=== PATIENT | female | born 1970 | race African-American/Black ===

== ENCOUNTER 2017-01-03 18:20 | Observation (INO) | payer BC, OTHER ==
--- NOTE | 2017-01-03 19:52 | PDOC ---
History of Present Illness - General Chief Complaint: Chest Pain Stated Complaint: CHEST PAIN Time Seen by Provider: 01/03/17 19:14 History Source: Patient Exam Limitations: No Limitations - History of Present Illness Initial Comments: 01/03/17 19:29 46yo Female patient w/ PmHx: Fibromyalgia, DDD (neck) presents to ED c/o Chest Pain since Friday. Patient states she went to bed on Friday night completely fine, and woke up with this pain. She reports taking Cyclobenzeprine with no relief. Patient describes pain as "Heavy pulsating feeling that is dull and travels through to her back." LNMP: 5 years ago. Denies n/v/d, dizziness, fever, or any other complaints at this time. Presenting Symptoms: Chest Pain, Short of Breath Timing/Duration: reports: constant Severity/Quality: reports: moderate, dull Location: reports: substernal Chest Pain Radiation: reports: back Activities at Onset: reports: no specific activity Prior Chest Pain/Cardiac Workup: reports: No prior chest pain, No prior cardiac workup Past History - Travel Traveled outside of the country in the last 30 days: No Close contact w/someone who was outside of country & ill: No - Past Medical History Allergies/Adverse Reactions: Allergies Allergy/AdvReac Type Severity Reaction Status Date / Time Iodinated Contrast Media - Allergy Verified 01/03/17 18:34 Oral and [IV Dye, Iodine Containing Contrast ] Home Medications: Ambulatory Orders Tramadol HCl 50 mg PO DAILY PRN 01/03/17 Anemia: No Asthma: No Cancer: No Cardiac Disorders: No CVA: No COPD: No Dementia: No Diabetes: No Dialysis: No GI Disorders: No Disorders: No HTN: No Hypercholesterolemia: No HIV: No Kidney Stones: No Liver Disease: No Seizures: No Thyroid Disease: No Other medical history: FIBROMYALGIA, SPINAL STENOSIS - Surgical History Abdominal Surgery: No Appendectomy: No Cardiac Surgery: No Cholecystectomy: No Lung Surgery: No Neurologic Surgery: No - Reproductive History Cervical CA: No Dysfunctional Uterine Bleeding: No Ectopic : No Endometrial CA: No Polycystic Ovaries: No Tubal Ligation: Yes - Psycho/Social/Smoking Cessation Hx Anxiety: No Suicidal Ideation: No Smoking Status: No Smoking History: Never smoked Number of Cigarettes Smoked Daily: 0 Hx Alcohol Use: No Drug/Substance Use Hx: No Substance Use Type: None Cardiac Specific PMH - Complaint Specific PMHX Abdominal Aortic Aneurysm: No Angina: No Cardiac Arrhythmia: No Cardiac Stent: No GERD: No Myocardial Infarction: No Pacemaker: No Pulmonary Embolus: No Valvular Heart Disease: No Peripheral Vascular Disease: No Review of Systems - Review of Systems Able to Perform ROS?: Yes Is the patient limited [place]otho proficient: No Constitutional: No: Chills, Fever Respiratory: Yes: Shortness of Breath. No: Cough, Orthopnea, Stridor, Wheezing , Productive cough, Hemoptysis Cardiac (ROS): Yes: Chest Pain. No: Edema, Lightheadedness, Palpitations, Syncope, Chest Tightness ABD/GI: No: Diarrhea, Nausea, Poor Appetite, Poor Fluid Intake, Rectal Bleeding , Vomiting : No: Dysuria, Hematuria Musculoskeletal: Yes: Back Pain, Muscle Pain. No: Joint Pain, Muscle Weakness, Neck Pain Integumentary: No: Erythema, Rash Neurological: No: Headache, Numbness, Paresthesia, Tremors, Weakness, Dizziness All Other Systems: Reviewed and Negative *Physical Exam - Vital Signs Last Vital Signs Temp Pulse Resp BP Pulse Ox 98.7 F 104 H 19 151/85 97 01/03/17 18:34 01/03/17 18:34 01/03/17 18:34 01/03/17 18:34 01/03/17 18:34 - Physical Exam General Appearance: Yes: Nourished, Appropriately Dressed, Mild Distress. No: Apparent Distress, Disheveled, Moderate Distress, Severe Distress Neck: positive: Trachea midline, Normal Thyroid, Supple. negative: Lymphadenopathy (R), Lymphadenopathy (L) Respiratory/Chest: positive: Chest Tender (Reproducible on palpation.), Lungs Clear, Normal Breath Sounds. negative: Respiratory Distress, Accessory Muscle Use, Labored Respiration, Rapid RR Cardiovascular: positive: Regular Rhythm, Tachycardia. negative: JVD, Murmur Gastrointestinal/Abdominal: positive: Normal Bowel Sounds, Soft. negative: Distended, Guarding, Rebound, Tenderness Musculoskeletal: positive: Normal Inspection. negative: CVA Tenderness Extremity: positive: Normal Capillary Refill, Normal Inspection, Normal Range of Motion. negative: Pedal Edema, Swelling Integumentary: positive: Normal Color, Dry, Warm Neurologic: positive: electrician helper II-XII NML intact, Fully Oriented, Alert, Normal Mood/ Affect, Normal Response, Motor Strength 5/5 Heart Score/ECG Review - History History: Slightly suspicious - Electrocardiogram EKG: Normal - Age Age: 45-65 - Risk Factors Risk Factors Heart Score: No Hx Hypercholesterolemia, No Hx Hypertension, No Hx Diabetes, No Smoking History, No Positive family hx of cardiac disease, No Hx Obesity Based on the list above the patient has:: 1-2 risk factors - Troponin Troponin: </= normal limit - Score Heart Score - Total: 2 - ECG Impressions Normal ECG: Yes Non-specific ST Elevation: No Ischemic Changes: No Bradycardia: No Torsades bryant Pointes: No WPW: No ED Treatment Course - LABORATORY CBC & Chemistry Diagram: 01/03/17 18:55 01/03/17 18:55 - ADDITIONAL ORDERS Additional order review: Laboratory Results 01/03/17 01/03/17 01/03/17 20:00 20:00 19:25 D-Dimer < 200 Sodium Potassium Chloride Carbon Dioxide Anion Gap BUN Creatinine Creat Clearance w eGFR Random Glucose Calcium Total Bilirubin AST ALT Alkaline Phosphatase Creatine Kinase 133 Troponin I C-Reactive Protein 1.6 H Total Protein Albumin Urine Color Ltyellow Urine Appearance Clear Urine pH 7.0 D Ur Specific [place] 1.019 Urine Protein Negative Urine Glucose (UA) Negative Urine Ketones Negative Urine Blood Negative Urine Nitrite Negative Urine Bilirubin Negative Urine Urobilinogen Negative Ur Leukocyte Esterase Negative Urine HCG, Qual Negative 01/03/17 18:55 D-Dimer Sodium 141 Potassium 4.3 Chloride 104 Carbon Dioxide 27 Anion Gap 10 BUN 14 Creatinine 0.9 Creat Clearance w eGFR > 60 Random Glucose 127 H Calcium 9.3 Total Bilirubin 1.1 H AST 16 ALT 33 Alkaline Phosphatase 79 Creatine Kinase 136 Troponin I < 0.02 C-Reactive Protein Total Protein 7.4 Albumin 3.6 Urine Color Urine Appearance Urine pH Ur Specific [place] Urine Protein Urine Glucose (UA) Urine Ketones Urine Blood Urine Nitrite Urine Bilirubin Urine Urobilinogen Ur Leukocyte Esterase Urine HCG, Qual 01/03/17 18:55 RBC 4.55 MCV 83.0 MCHC 34.5 RDW 16.1 H MPV 9.5 Neutrophils % 45.1 D Lymphocytes % 44.6 H D Monocytes % 8.3 Eosinophils % 1.5 Basophils % 0.5 - RADIOLOGY Radiology Studies Ordered: Category Date Time Status CHEST CTA [CT] Stat CT Scan 01/03/17 22:25 Completed CHEST PA & LAT [RAD] Stat Radiology 01/03/17 19:26 Completed - Medications Given in the ED: ED Medications Discontinued Medications Generic Name Dose Route Start Last Admin Trade Name Willard PRN Reason Stop Dose Admin Aspirin 324 mg 01/04/17 00:24 01/04/17 00:57 Asa - PO 01/04/17 00:25 324 mg ONCE ONE Administration Diphenhydramine HCl 50 mg 01/03/17 21:34 01/03/17 21:47 Benadryl Injection - IM 01/03/17 21:35 50 mg ONCE ONE Administration Sodium Chloride 1,000 mls @ 1,000 mls/hr 01/03/17 20:35 01/03/17 20:51 Normal Saline - IV 01/03/17 21:34 1,000 mls/hr ASDIR STA Administration Ketorolac Tromethamine 30 mg 01/03/17 20:35 01/03/17 20:51 Toradol Injection - IVPUSH 01/03/17 20:36 30 mg ONCE ONE Administration Methylprednisolone Sodium Succinate 125 mg 01/03/17 21:34 01/03/17 21:39 Solu-Medrol - IVPB 01/03/17 21:35 125 mg ONCE ONE Administration Medical Decision Making - Medical Decision Making 01/03/17 21:31 Spoke with patient regarding CTA and allergies to contrast. Patient states she had a delayed reaction years ago where she broke out in hives. Patient had another CT-Scan with contrast more recently and was pre-medicated with Benadryl. No complication or allergic reaction reported. Patient agreed to CTA r /o embolism. *DC/Admit/Observation/Transfer Diagnosis at time of Disposition: Chest pain of unknown etiology - Discharge Dispostion Condition at time of disposition: Fair Admit: Yes - Referrals Referrals: Ca Reynolds [Primary Care Provider] -
[2017-01-03 19:55] LABS: BASOPHIL 0.5 % (0-2.0); EOSINOPHIL 1.5 % (0-4.5); MCH 28.6 pg (25.7-33.7); MCHC 34.5 g/dl (32.0-36.0); MEAN PLT VOLUME 9.5 fl (7.5-11.1); NEUTROPHILS 45.1 % (42.8-82.8); PLATELET COUNT 255 K/MM3 (134-434); RDW 16.1 % (11.6-15.6); WHITE BLOOD COUNT 11.5 K/mm3 (4.0-10.0)
[2017-01-03 20:01] LABS: URINE APPEARANCE CLEAR; URINE BILIRUBIN NEGATIVE (NEGATIVE); URINE BLOOD NEGATIVE (NEGATIVE); URINE COLOR LTYELLOW; URINE GLUCOSE (UA) NEGATIVE (NEGATIVE); URINE KETONE NEGATIVE (NEGATIVE); URINE LEUK ESTERASE NEGATIVE (NEGATIVE); URINE NITRITE NEGATIVE (NEGATIVE); URINE PROTEIN NEGATIVE (NEGATIVE); URINE UROBILINOGEN NEGATIVE E.U./dl (0.2-1.0)
[2017-01-03 20:35] LABS: ALBUMIN 3.6 g/dl (3.4-5.0); ANION GAP 10 (8-16); BILIRUBIN,TOTAL 1.1 mg/dL (0.2-1.0); CALCIUM 9.3 mg/dL (8.5-10.1); CO2 27 mmol/L (21-32); CREATININE 0.9 mg/dL (0.55-1.02); GLUCOSE,RANDOM 127 mg/dL (74-106); SGOT/AST 16 U/L (15-37); SGPT/ALT 33 U/L (12-78); TOT PROT 7.4 g/dl (6.4-8.2)
[2017-01-03] MEDS ORDERED: SODIUM CHLORIDE 1,000 ML IV STA (20:35)
[2017-01-03] MEDS ORDERED: KETOROLAC TROMETHAMINE 30 MG/1 ML VIAL IVPUSH ONE (20:35)
[2017-01-03 20:37] LABS: ALK PHOS 79 U/L (45-117); TROPONIN I < 0.02 ng/ml (0.00-0.05)
[2017-01-03] MEDS ORDERED: KETOROLAC TROMETHAMINE 30 MG/1 ML VIAL ONE (20:42)
[2017-01-03 21:27] LABS: C-REACTIVE PROTEIN 1.6 MG/DL (0.00-0.3)
[2017-01-03] MEDS ORDERED: methylPREDNISolone NA SUCC 125 MG/2 ML VIAL ONE (21:33)
[2017-01-03] MEDS ORDERED: methylPREDNISolone NA SUCC 125 MG/2 ML VIAL IVPB ONE (21:34)
[2017-01-04] MEDS ORDERED: ASPIRIN 81 MG CHEWABLE TABLETS PO ONE (00:24)
[2017-01-04] MEDS ORDERED: ASPIRIN COATED 81 MG TABLET.EC ONE (00:35)
--- NOTE | 2017-01-04 01:08 | HP ---
CHIEF COMPLAINT: Chest Pain, SOB PCP: HISTORY OF PRESENT ILLNESS: This is a 46 y/o woman with a past medical history of Fibromyalgia, DJD, Thyroid Nodules. Who presents to the ED with midsternal intermittent chest pressure and SOB x 2 days. patient reports awakening in the morning to . She reports the pressure is worse on deep inspiration. Patient reports at times the pressure became worse with movement. Patient reports recent travel to [place] mid November by car 14hrs. Patient denies calf pain. Patient denies fever, chills, dizziness, AP, N/V/D, constipation, dysuria. ER course was notable for: (1) Cardiac Enzymes neg x1 (2) EKG- ST, anteroseptal infarct age undetermined (3) D- Dimer < 200 (4) CTA- neg PE Recent Travel: Yes PAST MEDICAL HISTORY: See HPI PAST SURGICAL HISTORY: Salpinoophrectomy Hysterectomy Thyroid Biopsy- 2016- negative Social History: Smoking: Never Alcohol: None Drugs: None Lives with Spouse, not employed Family History: Sisters: Thyroid Cancer, Diabetes, Crohn's Disease Mother: Diabetes Allergies Iodinated Contrast Media - Oral and [IV Dye, Iodine Containing Contrast ] Allergy (Verified 01/03/17 18:34) HOME MEDICATIONS: Home Medications Medication Instructions Recorded Tramadol HCl 50 mg PO DAILY PRN 01/03/17 REVIEW OF SYSTEMS CONSTITUTIONAL: fatigue Absent: fever, chills, diaphoresis, generalized weakness, malaise, loss of appetite, weight change HEENT: Absent: rhinorrhea, nasal congestion, throat pain, throat swelling, difficulty swallowing, mouth swelling, ear pain, eye pain, visual changes CARDIOVASCULAR: chest pain Absent: syncope, palpitations, irregular heart rate, lightheadedness, peripheral edema RESPIRATORY: cough, shortness of breath Absent: dyspnea with exertion, orthopnea, wheezing, stridor, hemoptysis GASTROINTESTINAL: Absent: abdominal pain, abdominal distension, nausea, vomiting, diarrhea, constipation, melena, hematochezia GENITOURINARY: Absent: dysuria, frequency, urgency, hesitancy, hematuria, flank pain, genital pain MUSCULOSKELETAL: myalgia, arthralgia Absent: joint swelling, back pain, neck pain SKIN: Absent: rash, itching, pallor HEMATOLOGIC/IMMUNOLOGIC: Absent: easy bleeding, easy bruising, lymphadenopathy, frequent infections ENDOCRINE: Absent: unexplained weight gain, unexplained weight loss, heat intolerance, cold intolerance NEUROLOGIC: Absent: headache, focal weakness or paresthesias, dizziness, unsteady gait, seizure, mental status changes, bladder or bowel incontinence PSYCHIATRIC: Absent: anxiety, depression, suicidal or homicidal ideation, hallucinations. PHYSICAL EXAMINATION Vital Signs - 24 hr 01/03/17 18:34 Temperature 98.7 F Pulse Rate 104 H Respiratory 19 Rate Blood Pressure 151/85 O2 Sat by Pulse 97 Oximetry (%) GENERAL: Awake, alert, and fully oriented, in no acute distress. HEAD: Normal with no signs of trauma. EYES: Pupils equal, round and reactive to light, extraocular movements intact, sclera anicteric, conjunctiva clear. No lid lag. EARS, NOSE, THROAT: Ears normal, nares patent, oropharynx clear without exudates. Moist mucous membranes. NECK: Normal range of motion, supple without lymphadenopathy, JVD, or masses. LUNGS: Breath sounds equal, clear to auscultation bilaterally. No wheezes, and no crackles. No accessory muscle use. HEART: Regular rate and rhythm, normal S1 and S2 without murmur, rub or gallop. CP reproducible to L- chest wall upon palpation ABDOMEN: Soft, nontender, not distended, normoactive bowel sounds, no guarding, no rebound, no masses. No hepatomegaly or splenomegaly. MUSCULOSKELETAL: Normal range of motion at all joints. No bony deformities or tenderness. No CVA tenderness. UPPER EXTREMITIES: 2+ pulses, warm, well-perfused. No cyanosis. No clubbing. Trace B/L hands peripheral edema. LOWER EXTREMITIES: 2+ pulses, warm, well-perfused. No calf tenderness. No peripheral edema. NEUROLOGICAL: Cranial nerves II-XII intact. Normal speech. Normal gait. PSYCHIATRIC: Cooperative. Good eye contact. Appropriate mood and affect. SKIN: Warm, dry, normal turgor, no rashes or lesions noted, normal capillary refill. Laboratory Results - last 24 hr 01/03/17 01/03/17 01/03/17 18:55 18:55 19:25 WBC 11.5 H RBC 4.55 Hgb 13.0 Hct 37.8 MCV 83.0 MCHC 34.5 RDW 16.1 H Plt Count 255 MPV 9.5 Neutrophils % 45.1 D Lymphocytes % 44.6 H D Monocytes % 8.3 Eosinophils % 1.5 Basophils % 0.5 D-Dimer Sodium 141 Potassium 4.3 Chloride 104 Carbon Dioxide 27 Anion Gap 10 BUN 14 Creatinine 0.9 Creat Clearance w eGFR > 60 Random Glucose 127 H Calcium 9.3 Total Bilirubin 1.1 H AST 16 ALT 33 Alkaline Phosphatase 79 Creatine Kinase 136 Troponin I < 0.02 C-Reactive Protein Total Protein 7.4 Albumin 3.6 Urine Color Ltyellow Urine Appearance Clear Urine pH 7.0 D Ur Specific [place] 1.019 Urine Protein Negative Urine Glucose (UA) Negative Urine Ketones Negative Urine Blood Negative Urine Nitrite Negative Urine Bilirubin Negative Urine Urobilinogen Negative Ur Leukocyte Esterase Negative Urine HCG, Qual Negative 01/03/17 01/03/17 20:00 20:00 WBC RBC Hgb Hct MCV MCHC RDW Plt Count MPV Neutrophils % Lymphocytes % Monocytes % Eosinophils % Basophils % D-Dimer < 200 Sodium Potassium Chloride Carbon Dioxide Anion Gap BUN Creatinine Creat Clearance w eGFR Random Glucose Calcium Total Bilirubin AST ALT Alkaline Phosphatase Creatine Kinase 133 Troponin I C-Reactive Protein 1.6 H Total Protein Albumin Urine Color Urine Appearance Urine pH Ur Specific [place] Urine Protein Urine Glucose (UA) Urine Ketones Urine Blood Urine Nitrite Urine Bilirubin Urine Urobilinogen Ur Leukocyte Esterase Urine HCG, Qual ASSESSMENT/PLAN: This is a 46 y/o woman with a PMHx of: Fibromyalgia, DJD, Thyroid Nodules (2016 - Biopsy- negative). Placed on Observation for CP r/o ACS for further evaluation of their emergent condition. Problem List - Problem (1) Chest pain of unknown etiology Assessment/Plan: - HEART Score 2 - Troponin I neg x1 - Serial Enzymes - EKG- NSR no ST or TWI - CTA- neg PE - D- Dimer- neg - Asa given in ED - Continue Asa - Ketoralac prn - Check TSH - Consider echo in outpatient Code(s): R07.89 - OTHER CHEST PAIN (2) Fibromyalgia Assessment/Plan: - Continue to monitor - Continue Tramadol prn Code(s): M79.7 - FIBROMYALGIA (3) DVT prophylaxis Assessment/Plan: - OOB - SCDs - Consider ACs if LOS > 48 hrs Code(s): BXP3345 - Visit type - Emergency Visit Emergency Visit: Yes ED Registration Date: 01/04/17 Care time: The patient presented to the Emergency Department on the above date and was hospitalized for further evaluation of their emergent condition. - New Patient This patient is new to me today: Yes Date on this admission: 01/04/17 - Critical Care Critical Care patient: No
[2017-01-04] MEDS ORDERED: KETOROLAC TROMETHAMINE 30 MG/1 ML VIAL IVPUSH PRN (05:12)
[2017-01-04 05:36] VITALS: BMI 35.7
[2017-01-04] MEDS ORDERED: ACETAMINOPHEN 325 MG TABLET (FP) PO PRN (08:26)
[2017-01-04 08:39] LABS: BASOPHIL 0.1 % (0-2.0); MCH 29.1 pg (25.7-33.7); MCHC 35.2 g/dl (32.0-36.0); MEAN CELL VOLUME 82.7 fl (80-96); MEAN PLT VOLUME 9.3 fl (7.5-11.1); NEUTROPHILS 83.7 % (42.8-82.8); PLATELET COUNT 243 K/MM3 (134-434)
[2017-01-04 09:34] LABS: ANION GAP 11 (8-16); CALCIUM 9.1 mg/dL (8.5-10.1); CO2 25 mmol/L (21-32); CREATININE 0.8 mg/dL (0.55-1.02); GLUCOSE,RANDOM 192 mg/dL (74-106); PHOSPHOROUS 2.4 mg/dL (2.5-4.9); TROPONIN I < 0.02 ng/ml (0.00-0.05)
[2017-01-04] MEDS ORDERED: ASPIRIN 81 MG CHEWABLE TABLETS PO SCH (10:00)
[2017-01-04 10:30] LABS: THYROID STIMULATING HORMONE 0.25 uIU/ml (0.358-3.74)
--- NOTE | 2017-01-04 11:17 | CON.CARD ---
Cardiology Consult (text) - Consultation Consultation Note: cc: cp hpi: 46 f hx fibromyalgia here with cp. Pt has no hx hrt dz. She has intermittent episodes of MSK pains from fibromyalgia, sometimes in chest area. On fri she noticed cp while resting. Achey strong pain in left chest and left upper back. Worse with deep breaths and movements. CP persisted constantly since friday and did not resolve until got pain meds in ER. No associated sxs, no sob, palps, dizzy, loc, pnd, orthopnea, le edema. After getting pain meds in ER she is feeling better today, no further cp. pmh: per hpi psh: hysterectomy social: no tob fam: no premature cad, scd ros: per hpi; no nvd, fever, cough, nasal congestion, pack, vision changes, gib, hematuria meds: no home meds pe: Vital Signs Period Temp Pulse Resp BP Sys/Fink Pulse Ox Last 24 Hr 97.4 F-98.7 F 84-104 19-19 122-151/70-85 97-98 nad no jvd rrr s1s2 no mrg cta bl nl eff aaox3 no le e/c/c abd nt nd pos bs no jaundice diaphoresis +dp pt no carotid bruits Laboratory Last Values WBC 12.0 K/mm3 (4.0-10.0) H 01/04/17 06:00 RBC 4.48 M/mm3 (3.60-5.2) 01/04/17 06:00 Hgb 13.0 GM/dL (10.7-15.3) 01/04/17 06:00 Hct 37.0 % (32.4-45.2) 01/04/17 06:00 MCV 82.7 fl (80-96) 01/04/17 06:00 MCHC 35.2 g/dl (32.0-36.0) 01/04/17 06:00 RDW 16.0 % (11.6-15.6) H 01/04/17 06:00 Plt Count 243 K/MM3 (134-434) 01/04/17 06:00 MPV 9.3 fl (7.5-11.1) 01/04/17 06:00 Neutrophils % 83.7 % (42.8-82.8) H D 01/04/17 06:00 Lymphocytes % 15.4 % (8-40) D 01/04/17 06:00 Monocytes % 0.8 % (3.8-10.2) L D 01/04/17 06:00 Eosinophils % 0.0 % (0-4.5) D 01/04/17 06:00 Basophils % 0.1 % (0-2.0) 01/04/17 06:00 D-Dimer < 200 ng/ml (<200-235) 01/03/17 20:00 Sodium 138 mmol/L (136-145) 01/04/17 06:00 Potassium 4.1 mmol/L (3.5-5.1) 01/04/17 06:00 Chloride 102 mmol/L (98-107) 01/04/17 06:00 Carbon Dioxide 25 mmol/L (21-32) 01/04/17 06:00 Anion Gap 11 (8-16) 01/04/17 06:00 BUN 16 mg/dL (7-18) 01/04/17 06:00 Creatinine 0.8 mg/dL (0.55-1.02) 01/04/17 06:00 Creat Clearance w eGFR > 60 (>60) 01/03/17 18:55 Random Glucose 192 mg/dL (74-106) H D 01/04/17 06:00 Calcium 9.1 mg/dL (8.5-10.1) 01/04/17 06:00 Phosphorus 2.4 mg/dL (2.5-4.9) L 01/04/17 06:00 Magnesium 2.0 mg/dL (1.8-2.4) 01/04/17 06:00 Total Bilirubin 1.1 mg/dL (0.2-1.0) H 01/03/17 18:55 AST 16 U/L (15-37) 01/03/17 18:55 ALT 33 U/L (12-78) 01/03/17 18:55 Alkaline Phosphatase 79 U/L (45-117) 01/03/17 18:55 Creatine Kinase 133 IU/L (26-192) 01/03/17 20:00 Troponin I < 0.02 ng/ml (0.00-0.05) 01/04/17 06:00 C-Reactive Protein 1.6 MG/DL (0.00-0.3) H 01/03/17 20:00 Total Protein 7.4 g/dl (6.4-8.2) 01/03/17 18:55 Albumin 3.6 g/dl (3.4-5.0) 01/03/17 18:55 TSH 0.25 uIU/ml (0.358-3.74) L 01/04/17 06:00 Urine Color Ltyellow 01/03/17 19:25 Urine Appearance Clear 01/03/17 19:25 Urine pH 7.0 (5.0-8.0) D 01/03/17 19:25 Ur Specific [place] 1.019 (1.001-1.035) 01/03/17 19:25 Urine Protein Negative (NEGATIVE) 01/03/17 19:25 Urine Glucose (UA) Negative (NEGATIVE) 01/03/17 19:25 Urine Ketones Negative (NEGATIVE) 01/03/17 19:25 Urine Blood Negative (NEGATIVE) 01/03/17 19:25 Urine Nitrite Negative (NEGATIVE) 01/03/17 19:25 Urine Bilirubin Negative (NEGATIVE) 01/03/17 19:25 Urine Urobilinogen Negative E.U./dl (0.2-1.0) 01/03/17 19:25 Ur Leukocyte Esterase Negative (NEGATIVE) 01/03/17 19:25 Urine HCG, Qual Negative 01/03/17 19:25 ecg 01/03/17: sr, nl intervals, no ischemic changes cta chest: no pe, no diss/aneurysm, clear lungs a/p: 46 f hx fibromyalgia here with cp. cp: -atypical cp with msk features -no signs acs -ce's neg x3, ecg unremarkable, cta chest unremarkable -current sxs do not seem cardiac, seem msk related and have improved with pain meds, cont pain treatment per pmd -can consider outpt cardiac testing if sxs recur -cardiac richard ok for dc
[2017-01-04 11:22] VITALS: BP 123/72; PULSE 98; TEMP 98.4
--- NOTE | 2017-01-04 11:52 | DS ---
Physical Exam: SUBJECTIVE: Patient seen and examined OBJECTIVE: Vital Signs Period Temp Pulse Resp BP Sys/Fink Pulse Ox Last 24 Hr 97.4 F-98.4 F 84-98 19-19 122-135/70-79 98-98 PHYSICAL EXAM GENERAL: The patient is awake, alert, and fully oriented, in no acute distress. HEAD: Normal with no signs of trauma. EYES: PERRL, extraocular movements intact, sclera anicteric, conjunctiva clear. ENT: Ears normal, nares patent, oropharynx clear without exudates, moist mucous membranes. NECK: Trachea midline, full range of motion, supple. LUNGS: Breath sounds equal, clear to auscultation bilaterally, no wheezes, no crackles, no accessory muscle use. HEART: Regular rate and rhythm, S1, S2 without murmur, rub or gallop. ABDOMEN: Soft, nontender, nondistended, normoactive bowel sounds, no guarding, no rebound, no hepatosplenomegaly, no masses. EXTREMITIES: 2+ pulses, warm, well-perfused, no edema. NEUROLOGICAL: Cranial nerves II through XII grossly intact. Normal speech, gait not observed. PSYCH: Normal mood, normal affect. SKIN: Warm, dry, normal turgor, no rashes or lesions noted. LABS Laboratory Results - last 24 hr 01/04/17 01/04/17 01/04/17 01:44 06:00 06:00 WBC 12.0 H RBC 4.48 Hgb 13.0 Hct 37.0 MCV 82.7 MCHC 35.2 RDW 16.0 H Plt Count 243 MPV 9.3 Neutrophils % 83.7 H D Lymphocytes % 15.4 D Monocytes % 0.8 L D Eosinophils % 0.0 D Basophils % 0.1 Sodium 138 Potassium 4.1 Chloride 102 Carbon Dioxide 25 Anion Gap 11 BUN 16 Creatinine 0.8 Random Glucose 192 H D Calcium 9.1 Phosphorus 2.4 L Magnesium 2.0 Troponin I < 0.02 < 0.02 TSH 0.25 L HOSPITAL COURSE: Date of Admission:01/04/17 Date of Discharge: 01/04/17 Pre hospital course This is a 46 y/o woman with a past medical history of fibromyalgia, DJD, and thyroid nodules who presented to the ED with midsternal intermittent chest pressure and SOB x 2 days. Patient reported awakening in the morning to . She reported the pressure was worse on deep inspiration. Patient reported at times the pressure became worse with movement. Patient reported recent travel to [place] in mid November by car x 14hrs. Patient denied calf pain. Patient denied fever, chills, dizziness, AP, N/V/D, constipation, dysuria. ER course was notable for: (1) Cardiac Enzymes neg x1 (2) EKG- ST, anteroseptal infarct age undetermined (3) D- Dimer < 200 (4) CTA- neg PE Subsequent hospital course Seen and evaluated by cardiology: cp: -atypical cp with msk features -no signs acs -ce's neg x3, ecg unremarkable, cta chest unremarkable -current sxs do not seem cardiac, seem msk related and have improved with pain meds, cont pain treatment per pmd -can consider outpt cardiac testing if sxs recur -cardiac richard ok for dc Minutes to complete discharge: 35 Discharge Summary Reason For Visit: CHEST PAIN OF UNKNOWN ETIOLOGY Current Active Problems Chest pain of unknown etiology (Acute) DVT prophylaxis (Acute) Fibromyalgia (Acute) Condition: Improved - Instructions Diet, Activity, Other Instructions: It is important for you to call Dr. Reynolds on Friday and tell her of your hospital stay. Return to the emergency department for any new or worsening symptoms. Referrals: Ca Reynolds [Primary Care Provider] - Disposition: HOME - Home Medications Comprehensive Discharge Medication List: Ambulatory Orders Tramadol HCl 50 mg PO DAILY PRN 01/03/17 This patient is new to me today: Yes Date on this admission: 02/01/17 Emergency Visit: Yes ED Registration Date: 01/04/17 Care time: The patient presented to the Emergency Department on the above date and was hospitalized for further evaluation of their emergent condition. Critical Care patient: No - Discharge Referral Referred to [facility] No
--- NOTE | 2017-01-06 22:51 | EKG ---
Test Reason : Blood Pressure : / mmHG Vent. Rate : 102 BPM Atrial Rate : 102 BPM P-R Int : 158 ms QRS Dur : 078 ms QT Int : 334 ms P-R-T Axes : 049 045 068 degrees QTc Int : 435 ms POOR DATA QUALITY, INTERPRETATION MAY BE ADVERSELY AFFECTED SINUS TACHYCARDIA POSSIBLE LEFT ATRIAL ENLARGEMENT ANTEROSEPTAL INFARCT (CITED ON OR BEFORE 21-APR-2012) ABNORMAL ECG WHEN COMPARED WITH ECG OF 08-NOV-2016 12:48, NO SIGNIFICANT CHANGE IS FOUND Confirmed by JANINE MULLEN, AGNIESZKA ([id number]) on 01/06/2017 10:50:47 PM Referred By: Confirmed By:AGNIESZKA MEHTA MD
--- NOTE | 2017-01-07 22:39 | EKG ---
Test Reason : Blood Pressure : / mmHG Vent. Rate : 106 BPM Atrial Rate : 106 BPM P-R Int : 166 ms QRS Dur : 082 ms QT Int : 350 ms P-R-T Axes : 049 062 069 degrees QTc Int : 464 ms SINUS TACHYCARDIA OTHERWISE NORMAL ECG WHEN COMPARED WITH ECG OF 03-JAN-2017 18:28, NO SIGNIFICANT CHANGE WAS FOUND Confirmed by AGNIESZKA MEHTA MD ([id number]) on 01/07/2017 10:38:50 PM Referred By: Melissa KHAN Confirmed By:AGNIESZKA MEHTA MD
== END 2017-01-04 14:20 | disposition home or self-care (01) ==
LOC: JER 18:20 → JERBED 01-04 00:59 → UNDOADMOB 01-04 01:15 → J8W 01-04 02:37
PROVIDERS: ADMIT Internal Medicine; ATTEND Nurse Practitioner Acute Care
PROC: 3E033GC Introduction of Other Therapeutic Substance into Peripheral Vein, Percutaneous Approach (ICD-10-PCS; principal; 2017-01-04)
PROC: 3E023GC Introduction of Other Therapeutic Substance into Muscle, Percutaneous Approach (ICD-10-PCS; 2017-01-04)
PROC: 3E0337Z Introduction of Electrolytic and Water Balance Substance into Peripheral Vein, Percutaneous Approach (ICD-10-PCS; 2017-01-04)
DX: R07.89 Other chest pain (principal); M79.7 Fibromyalgia; M50.30 Other cervical disc degeneration, unspecified cervical region; E04.1 Nontoxic single thyroid nodule; Z90.710 Acquired absence of both cervix and uterus; Z79.01 Long term (current) use of anticoagulants
CPT/HCPCS: 36415; 71020-TC; 71275-TC; 80048; 80053; 81003; 82550; 83735; 84100; 84443; 84484; 84703; 85025; 85379; 86140; 93005; 93010; 99283-25; G0378